=== PATIENT | male | born 1945 ===

== ENCOUNTER 2020-10-28 09:29 | Inpatient (IN) | payer MEDICARE, OTHER ==
[2020-10-28 10:14] LABS: #Basophils 0.1 10x3/uL (0.0-0.2); #Eosinphils 0.7 10x3/uL (0.0-0.5); #Monocytes 0.7 10x3/uL (0.0-1.1); #Neutrophils 3.7 10x3/uL (1.5-8.4); %Basophils 0.8 % (0.0-2.0); %Eosinophils 9.6 % (0.0-6.0); %Lymphocytes 27.1 % (18.0-47.0); %Monocytes 10.3 % (0.0-10.0); %Neutrophils 51.8 % (40.0-75.0); Hemoglobin 14.8 g/dL (13.5-17.5); Mean Platelet Volume 10.8 fl (7.4-10.4); Platelet Count 146 10x3/uL (150-450); RBC Distribution Width 15.2 % (11.5-14.5); White Blood Cell (WBC) Count 7.2 10x3/uL (3.5-10.5)
[2020-10-28 10:32] LABS: ALT (SGPT) 20 U/L (8-55); AST (SGOT) 18 U/L (5-34); Albumin 3.9 g/dL (3.4-4.8); Alkaline Phosphatase 91 U/L (40-110); Anion Gap 14 mmol/L (10-20); BUN (Urea Nitrogen) 18 mg/dL (8.4-25.7); Bilirubin, Total 0.8 mg/dL (0.2-1.2); CK (CPK) 71 U/L (30-200); Calc. Creatinine Clearance 0 mL/min (70-130); Calcium 8.7 mg/dL (7.8-10.44); Carbon Dioxide 27 mmol/L (23-31); Chloride 105 mmol/L (98-107); Globulin 2.2 g/dL (2.4-3.5); Glucose 89 mg/dL (83-110); Potassium 3.8 mmol/L (3.5-5.1); Protein, Total 6.1 g/dL (5.8-8.1); Sodium 142 mmol/L (136-145)
[2020-10-28 10:46] LABS: CKMB 3.9 ng/mL (0-6.6)
[2020-10-28 13:32] LABS: Troponin I 0.054 ng/mL (< 0.028)
[2020-10-28 17:38] LABS: CKMB 3.9 ng/mL (0-6.6)
[2020-10-28 18:09] LABS: Cardiac Risk 5.4 (Less than 4.5)
[2020-10-28 18:20] VITALS: BMI 23.4
[2020-10-28] MEDS ORDERED: Aspirin 325 MG TAB PO SCH (18:30)
[2020-10-28] MEDS ORDERED: Enoxaparin Sodium 40 MG/0.4 ML SYRINGE SC SCH (18:30)
[2020-10-28] MEDS: Atorvastatin Calcium 40 MG TAB PO SCH (20:17)
[2020-10-28 20:38] LABS: Hemoglobin A1c 5.4 % (4.0-6.0)
[2020-10-28 23:57] LABS: Troponin I 0.049 ng/mL (< 0.028)
[2020-10-29 05:39] LABS: Troponin I 0.053 ng/mL (< 0.028)
[2020-10-29] MEDS ORDERED: Aspirin 325 MG TAB PO SCH (09:00)
[2020-10-29] MEDS ORDERED: HYDROmorphone 0.5 MG/0.5 ML SYRINGE SLOW IVP SCH (09:45)
[2020-10-29] MEDS: Allopurinol 100 MG TAB PO SCH (10:03)
[2020-10-29] MEDS: Hydrochlorothiazide 25 MG TAB PO SCH (10:03)
[2020-10-29] MEDS: Aspirin 81 mg Enteric Coated Tablet PO SCH (10:03)
[2020-10-29] MEDS: Lisinopril 20 MG TAB PO SCH (10:03)
[2020-10-29] MEDS: Atorvastatin Calcium 20 MG TAB PO SCH (10:03)
[2020-10-29] MEDS ORDERED: Ondansetron PF 4 MG/2 ML Vial IVP PRN (13:06)
[2020-10-29 14:53] LABS: Free T4 (Free Thyroxine) 1.02 ng/dL (0.70-1.48)
[2020-10-29 16:32] LABS: SARS-CoV-2 PCR by NAA Not Detected (NotDetected)
[2020-10-29] MEDS: Atorvastatin Calcium 40 MG TAB PO SCH (20:14)
[2020-10-30] MEDS: Hydrochlorothiazide 25 MG TAB PO SCH (08:54)
[2020-10-30] MEDS: Allopurinol 100 MG TAB PO SCH (08:54)
[2020-10-30] MEDS: Atorvastatin Calcium 20 MG TAB PO SCH (08:54)
[2020-10-30] MEDS: Lisinopril 20 MG TAB PO SCH (08:54)
[2020-10-30] MEDS: Aspirin 81 mg Enteric Coated Tablet PO SCH (08:54)
[2020-10-30] MEDS: Acetaminophen/Codeine 30-300mg Tablet PO PRN ×2 (08:56→18:24)
[2020-10-31] MEDS: Allopurinol 100 MG TAB PO SCH (08:21)
[2020-10-31] MEDS: Lisinopril 20 MG TAB PO SCH (08:21)
[2020-10-31] MEDS: Hydrochlorothiazide 25 MG TAB PO SCH (08:21)
[2020-10-31] MEDS: Atorvastatin Calcium 20 MG TAB PO SCH (08:21)
[2020-10-31] MEDS: Aspirin 81 mg Enteric Coated Tablet PO SCH (08:21)
[2020-10-31 11:42] VITALS: BP 104/57; TEMP 98.1
== END 2020-10-31 12:48 | disposition home health service (06) | DRG 310 ==
LOC: CSHERS 09:29 → CSHTELE 15:46 → UNDOADMOB 16:24 → INTOOBSV 16:24 → CSHTELE 16:24 → OBSVTOIN 10-29 17:04
PROVIDERS: ADMIT Internal Medicine; ATTEND Internal Medicine
DX: R00.1 Bradycardia, unspecified (principal); I48.0 Paroxysmal atrial fibrillation; R77.8 Other specified abnormalities of plasma proteins; R20.2 Paresthesia of skin; Z20.822 Contact with and (suspected) exposure to COVID-19; F03.90 Unspecified dementia, unspecified severity, without behavioral disturbance, psychotic disturbance, mood disturbance, and anxiety; I44.0 Atrioventricular block, first degree; R26.81 Unsteadiness on feet; E78.5 Hyperlipidemia, unspecified; I10 Essential (primary) hypertension; M47.816 Spondylosis without myelopathy or radiculopathy, lumbar region; Z86.73 Personal history of transient ischemic attack (TIA), and cerebral infarction without residual deficits; Z87.820 Personal history of traumatic brain injury
CPT/HCPCS: 36415; 71045; 72131; 72158; 80053; 80061; 82550; 82553; 83036; 84439; 84443; 84481; 84484; 85025; 87635; 93005; 93010; 93306; J1170; J1650; U0003; U0005